=== PATIENT | male | born 1965 | race Caucasian/White ===

== ENCOUNTER 2016-11-17 06:32 | Day surgery (SDC) | payer MEDICAID, OTHER ==
[2016-11-17] MEDS ORDERED: Lactated Ringers 1,000 ML IV SCH (07:00)
[2016-11-17] MEDS ORDERED: fentaNYL 100 MCG/2 ML SDV ONE (07:39)
[2016-11-17] MEDS ORDERED: Propofol 200 MG/20 ML SDV ONE (07:39)
[2016-11-17] MEDS ORDERED: Midazolam 1 MG/ML 2 ML SDV ONE (07:40)
[2016-11-17 10:20] VITALS: BP 109/74
--- NOTE | 2016-11-17 11:54 | OR ---
DATE OF PROCEDURE: 11/17/2016 PREOPERATIVE DIAGNOSIS: Colon cancer screening. POSTOPERATIVE DIAGNOSIS: Right-sided diverticulosis. PROCEDURE: Colonoscopy to the cecum. ANESTHESIA: IV anesthesia with monitored anesthesia care. INDICATION: This 51-year-old white male is referred for a colonoscopy for colon cancer screening. He has never had a colonoscopic exam. I counseled him for the procedure including risks and alternatives, and he gave his informed consent to proceed. DESCRIPTION OF PROCEDURE: The patient was placed in the left lateral decubitus position. IV anesthesia was administered by the Anesthesia Service. Time-out was held. A rectal exam was performed, which was unremarkable. The flexible video Olympus colonoscope was introduced through his anus, up his rectum, and out his colon all the way to the cecum. Once the cecum was reached, the scope was slowly withdrawn, examining the mucosa throughout. In the right colon, we saw one area of diverticulosis. There was no bleeding or inflammation associated with it. The scope was then withdrawn further with no other lesions noted. The scope was retroflexed in the rectum with the distal rectum appearing unremarkable. The scope was straightened and removed. He tolerated the procedure well. Alejandro Dominguez MD /[id number]
== END 2016-11-17 10:00 | disposition home or self-care (01) ==
LOC: JP.SDS 06:32
PROVIDERS: ATTEND Surgery
DX: Z12.11 Encounter for screening for malignant neoplasm of colon (principal); K57.30 Diverticulosis of large intestine without perforation or abscess without bleeding; F32.9 Major depressive disorder, single episode, unspecified; G47.33 Obstructive sleep apnea (adult) (pediatric)
CPT/HCPCS: 45378; J2250; J2704; J3010; J7120

== ENCOUNTER 2021-08-19 18:00 | Emergency (ER) | payer BC, OTHER ==
[2021-08-19 18:23] VITALS: BP 141/86; PULSE 80
[2021-08-19] MEDS ORDERED: Diphtheria,Pertussis(Acell),Tetanus Vaccine 0.5 ML Syringe IM ONE (18:33)
[2021-08-19] MEDS ORDERED: Bacitracin Oint 1 GM U/D Packet TOP ONE (18:33)
[2021-08-19] MEDS ORDERED: Lidocaine 1% 5 ML VIAL INJECT ONE (18:33)
[2021-08-19] MEDS ORDERED: Sodium Chloride 0.9% 10 ML Syringe FLUSH PRN (18:52)
[2021-08-19] MEDS ORDERED: ceFAZolin 2 GM in Premix Bag 1 BAG IV ONE (18:53)
[2021-08-19] MEDS ORDERED: Diazepam 5 MG Tab PO ONE (21:16)
== END 2021-08-19 21:20 | disposition home or self-care (01) ==
LOC: JP.ED 18:00
DX: S62.512B Displaced fracture of proximal phalanx of left thumb, initial encounter for open fracture (principal); Z91.030 Bee allergy status; Z88.4 Allergy status to anesthetic agent; Z23 Encounter for immunization; Z20.822 Contact with and (suspected) exposure to COVID-19; Z87.891 Personal history of nicotine dependence; W27.0XXA Contact with workbench tool, initial encounter
CPT/HCPCS: 73140; 87635; 90471; 90715; 96365; 99283; A9270; J0690; J3490; U0002